=== PATIENT | male | born 1995 | race Caucasian/White ===

== ENCOUNTER 2021-03-17 11:30 | Emergency (ER) | payer OTHER, SELFPAY ==
[2021-03-17 11:31] VITALS: BP 158/108; PULSE 120; RESP 16; TEMP 36.7; O2SAT 99; BMI 23.4
--- NOTE | 2021-03-17 11:45 | NURSING ---
NO OLD EKGS
[2021-03-17 13:34] VITALS: BP 140/88; PULSE 119; RESP 15
--- NOTE | 2021-03-17 13:46 | EKG12_ITS ---
Test Reason : Blood Pressure : / mmHG Vent. Rate : 125 BPM Atrial Rate : 125 BPM P-R Int : 122 ms QRS Dur : 102 ms QT Int : 296 ms P-R-T Axes : 071 084 054 degrees QTc Int : 427 ms Sinus tachycardia Otherwise normal ECG Confirmed by PAVEL HERNANDEZ, DELROY ([id number]), editor at large BIRGIT HARRINGTON ([id number]) on 03/18/2021 12:56:18 PM Referred By: TRUDY Confirmed By:DELROY ZHAO MD
--- NOTE | 2021-03-17 13:46 | CT_ITS ---
STUDY: CTA CHEST REASON FOR EXAM: Male, 25 years old. Left-sided chest pain worsening with deep inspiration RADIATION DOSAGE (If Supplied By Facility): CTDIvol = ( 10.03 ) mGy, DLP = ( 380.10 ) mGycm TECHNIQUE: The examination was performed with the intravenous administration of IV 100mL Isovue-370. Post-processing of the angiographic images was performed, with multiplanar reformation and 3D reconstruction. Individualized dose optimization techniques were used for this CT. COMPARISON: None. FINDINGS: There is no acute or chronic pulmonary embolism. Aorta is of normal caliber. Lungs are clear. There is no pneumothorax, pulmonary edema or pleural effusions. Mediastinal contents are normal. Osseous structures are intact. Abdominal structures are unremarkable. CT/CTA Chest W/WO Contrast IMPRESSION: 1. No pulmonary embolism 2. Normal chest. Electronically Signed: Kilo Dobbs MD at 15:25 EDT Tel , Service support ,
[2021-03-17] MEDS: Aspirin 81 MG TAB.CHEW 324 MG PO (14:02)
[2021-03-17] MEDS: 0.9% Normal Saline 1,000 ML 1000 ML IV (14:13)
[2021-03-17 14:22] LABS: Absolute Lymphocyte Count 1.16 X10^3/uL (0.83-4.51); Absolute Neutrophil Count 7.4 X10^3/uL (2.0-7.7); Basophil# 0.03 X10^3/uL; Basophil% 0.3 % (0-1); Eosinophil# 0.01 X10^3/uL; Eosinophils% 0.1 % (0-5); Hematocrit 41.8 % (40-54); Hemoglobin 14.7 g/dL (13.0-16.5); Lymphocyte # 1.16 X10^3/ul (0.83-4.51); Lymphocyte % 12.3 % (19-41); Mean Corp Hgb Conc 35.2 g/dL (32-36); Mean Corpuscular Hgb 31.9 pg (27.0-32.0); Mean Corpuscular Volume 90.7 fL (80-94); Monocyte% 8.5 % (0-10); NRBC Flagged by Analyzer 0 % (0-5); Neutrophil # 7.38 X10^3/uL (2.7-7.7); Neutrophil % 78.4 % (47-70); Platelet Count 142 K/mm3 (150-450); RBC Distribution Width CV 12.2 % (11.6-14.6); RBC Distribution Width SD 40.7 fl (35.1-43.9); Red Blood Count 4.61 M/mm3 (4.6-6.2); White Blood Count 9.4 K/mm3 (4.4-11.0)
[2021-03-17 14:40] LABS: Anion Gap 8 (5-15); BUN 13 mg/dL (7-18); Calcium,Total 9.3 mg/dL (8.5-10.1); Chloride 104 mmol/L (98-107); Creatinine, Serum 0.87 mg/dL (0.70-1.30); EST Glomerular Filtration Rate 114 mL/min (>60); Est Glom Filt Rate - Afr Amer 137 mL/min (>60); Estimated Creatinine Clearance 142.46 ml/min; Glucose 111 mg/dL (74-106); Potassium 3.7 mmol/L (3.5-5.1); Sodium Level 139 mmol/L (136-145); Troponin-I HS 75 pg/mL (3.0-78.0)
[2021-03-17 14:44] VITALS: BP 145/75; PULSE 106; RESP 18; O2SAT 99
--- NOTE | 2021-03-17 15:21 | EDS_ITS ---
HPI History of Present Illness Chief Complaint: Chest Pain Informant: patient Onset/Context/Timing Onset: Today Activity at onset: sudden Timing: Continuous Quality: Positive for - (Squeezing) Location: Substernal Worsened By: Breathing Relieved By: Nothing Associated Symptoms: Positive for Diaphoresis, Dyspnea, Lightheadedness and Palpitations; Negative for Nausea, Vomiting, Cough, Fever and Acid Reflux Narrative Narrative: Patient presents with chest pain that began today. Patient states it began rather suddenly. Patient states it has been constant. Patient states it feels like a squeezing sensation over the substernal area. Patient states it is worse when he takes deep breath. Patient states nothing seems to help with it. Patient states he did get clammy when it began. Patient also admits to some shortness of breath and lightheadedness. Patient also admits to some palpitations. Patient states his mother has a history of coronary artery disease in her 30s. Patient denies any other cardiac or PE risk factors. CVD Risk Factors: Positive for Family History 1' </=55; Negative for Hypertension, Diabetes, Hypercholesterolemia and Smoking PE Risk Factors: Negative for Recent Travel/Surgery, Recent Immobilization, Prior DVT or PE, Cancer and OCP + Smoking + >/=35 PFSH PFSH Medical History Non-smoker no medical history Home Medications No Known/Unobtainable [No Known Home Medications] 11/16/15 [History Last Taken Unknown] Allergy/AdvReac Type Severity Reaction Status Date / Time No Known Allergies Allergy Verified 03/17/21 11:31 Surgical History no surgical history no surgical history Social History Smoking Status: Never smoker ROS ROS ED Constitutional Constitutional ED: Denies chills or fever(s) Eyes Eyes: Denies blurry vision or change in vision ENT ENT ED: Denies rhinorrhea or sore throat Cardiovascular Cardiovascular: Reports chest pain and palpitations Respiratory/Chest Respiratory/Chest: Reports dyspnea; Denies cough Gastrointestinal Gastrointestinal: Denies abdominal pain, nausea or vomiting Genitourinary Genitourinary ED: Denies dysuria or hematuria Musculoskeletal Musculoskeletal: Denies back pain or neck pain Integumentary Denies abscess or rash Neurologic Neurologic: Denies headache(s) or weakness Allergic/Immunologic Allergic/Immunologic ED: Denies mouth swelling or urticaria EXAM Physical Exam Const Vital Signs: 03/17/21 11:31 03/17/21 13:34 03/17/21 14:21 Temperature 98.0 F Temperature Source Temporal Pulse Rate 120 H 119 H Respiratory Rate 16 15 Respiratory Effort Normal Blood Pressure 158/108 H 140/88 H Blood Pressure Mean 124 105 Pulse Ox 99 Oxygen Delivery Method Room Air Room Air Room Air 03/17/21 14:44 Temperature Temperature Source Pulse Rate 106 H Respiratory Rate 18 Respiratory Effort Blood Pressure 145/75 H Blood Pressure Mean 98 Pulse Ox 99 Oxygen Delivery Method Room Air Positive well nourished, well developed and obese General Appearance ED: well developed Nutritional Appearance: obese HEENT normocephalic and atraumatic Eyes PERRL and EOMs intact bilaterally Neck supple and no JVD Chest Wall palpation of chest normal Resp normal respiratory effort and clear to auscultation bilaterally Effort and Inspection: Negative for respiratory distress Cardio regular rate, regular rhythm and no murmurs GI normal to inspection, nondistended, normoactive bowel sounds, soft to palpation, non-tender and non-distended Extremity normal to inspection General Extremety ED: Negative for edema or tenderness General Extremity: Negative for edema Neuro oriented x3, CN's II-XII intact bilaterally and no sensory deficits noted Sensorium / Orientation: awake and alert Motor Exam: strength 5/5 throughout Psych mental status grossly normal Heart Score History: Moderately Suspicious ECG: Normal Age: </= 45 years Risk Factors: 1 or 2 Risk Factors Troponin: </= Normal Limit Score: 2 MDM MDM MDM Narrative Medical decision making narrative: Patient was given IV fluids and aspirin here. EKG was obtained. On my interpretation, it showed a sinus tachycardia with a rate of 125. NV interval, QRS interval, and QTc intervals were all normal. [place] was normal. There are no acute ST or T wave changes. CBC and basic metabolic profile were within normal limits. High-sensitivity troponin was normal. CTA of the chest was obtained. There is no air embolism. There is no acute process noted. This was interpreted by the radiologist and reviewed by myself. Repeat high-sensitivity troponin was obtained and was improved. Patient has a HEART score of 2. Patient was advised that this is low risk for acute cardiac event. Patient was instructed to follow-up with his primary care physician in 5 to 7 days. Patient understood and was agreeable with the plan. All questions were answered. Lab Data Attestation: I reviewed the patient's lab results. Labs: Laboratory Results - last 24 hr 03/17/21 03/17/21 03/17/21 14:16 14:16 16:06 WBC 9.4 RBC 4.61 Hgb 14.7 Hct 41.8 MCV 90.7 MCH 31.9 MCHC 35.2 RDW Std Deviation 40.7 RDW Coeff of Kush 12.2 Plt Count 142 L MPV 8.0 Immature Gran % (Auto) 0.400 Neut % (Auto) 78.4 H Lymph % (Auto) 12.3 L [place] % (Auto) 8.5 Eos % (Auto) 0.1 Baso % (Auto) 0.3 Absolute Neuts (auto) 7.4 Absolute Lymphs (auto) 1.16 Nucleated RBC % 0 Sodium 139 Potassium 3.7 Chloride 104 Carbon Dioxide 27.0 Anion Gap 8 BUN 13 Creatinine 0.87 Estim Creat Clear Calc 142.46 Est GFR (MDRD) Af Amer 137 Est GFR (MDRD) Non-Af 114 BUN/Creatinine Ratio 15.0 Glucose 111 H Calcium 9.3 Troponin I High Sens 75 69 Radiography Diagnostic Testing: Clinical Impression(s) from Imaging Studies Chest CTA 03/17/21 13:46 IMPRESSION: 1. No pulmonary embolism 2. Normal chest. Electronically Signed: Kilo Dobbs MD at 15:25 EDT Tel , Service support , EKG Initial EKG: Attestation: I personally reviewed and interpreted this EKG as follows: Interpretation: No Acute Injury Pattern and Sinus Tachycardia (125) Prior EKG tracings: not available for review Discharge Plan Triage Chief Complaint: Chest Pain ED Provider: John Irwin Dx/Rx/DC Orders Clinical Impression: Chest pain of uncertain etiology Instructions: ED Chest Pain, Uncertain Cause Prescriptions: No Action No Known Home Medications RF: 0 Primary Care Provider: Eagle Goel Referrals: Eagle Goel MD [Primary Care Provider] - 5-7 Days Disposition Disposition: Home, Self Care
[2021-03-17 16:28] LABS: Troponin-I HS 69 pg/mL (3.0-78.0)
[2021-03-17 16:49] VITALS: BP 122/74; PULSE 71; RESP 15; O2SAT 98
== END 2021-03-17 16:49 | disposition home or self-care (01) ==
PROVIDERS: Emergency Provider Emergency Medicine; PCP Pediatrics
DX: R07.9 Chest pain, unspecified (principal); R06.02 Shortness of breath; R42 Dizziness and giddiness; Z82.49 Family history of ischemic heart disease and other diseases of the circulatory system
CPT/HCPCS: 71275; 80048; 84484; 85025; 93005; 96360; 99284; J7030; Q9967

== ENCOUNTER 2022-11-16 20:18 | Emergency (ER) | payer BC, SELFPAY ==
[2022-11-16 20:19] VITALS: BP 146/98; PULSE 126; RESP 15; TEMP 37; O2SAT 96; BMI 27.8
[2022-11-16 21:17] LABS: Absolute Lymphocyte Count 1.88 X10^3/uL (0.83-4.51); Absolute Neutrophil Count 2.8 X10^3/uL (2.0-7.7); Basophil# 0.02 X10^3/uL; Basophil% 0.4 % (0-1); Eosinophil# 0.02 X10^3/uL; Eosinophils% 0.4 % (0-5); Hematocrit 44.2 % (40-54); Hemoglobin 15.6 g/dL (13.0-16.5); Lymphocyte # 1.88 X10^3/ul (0.83-4.51); Lymphocyte % 33.9 % (19-41); Mean Corp Hgb Conc 35.3 g/dL (32-36); Mean Corpuscular Hgb 31.8 pg (27.0-32.0); Mean Corpuscular Volume 90.2 fL (80-94); Mean Platelet Vol. 7.9 fl (6.2-12.0); Monocyte# 0.82 X10^3/uL; Monocyte% 14.8 % (0-10); NRBC Flagged by Analyzer 0 % (0-5); Neutrophil % 50.3 % (47-70); Platelet Count 151 K/mm3 (150-450); RBC Distribution Width CV 12.2 % (11.6-14.6); RBC Distribution Width SD 40.3 fl (35.1-43.9); White Blood Count 5.6 K/mm3 (4.4-11.0)
[2022-11-16 21:33] LABS: Anion Gap 10 (5-15); BUN 7 mg/dL (7-18); BUN/Creat Ratio 8.2 RATIO (10-20); Calcium,Total 8.7 mg/dL (8.5-10.1); Chloride 105 mmol/L (98-107); Creatinine, Serum 0.86 mg/dL (0.70-1.30); EST Glomerular Filtration Rate 114 mL/min (>60); Est Glom Filt Rate - Afr Amer 138 mL/min (>60); Estimated Creatinine Clearance 141.61 ml/min; Glucose 156 mg/dL (74-106); Potassium 3.4 mmol/L (3.5-5.1); Sodium Level 143 mmol/L (136-145)
[2022-11-16 21:33] LABS: Amphetamine Urine VISTA NEGATIVE (<1000 ng/mL); Barbiturate Urine VISTA NEGATIVE (< 200 ng/mL); Benzodiazepine Urine VISTA NEGATIVE (< 200 ng/mL); Cocaine Urine VISTA NEGATIVE (< 300 ng/mL); Ecstacy Urine VISTA NEGATIVE (< 500 ng/mL); Methadone Urine VISTA NEGATIVE (< 300 ng/mL); PCP Urine VISTA NEGATIVE (< 25 ng/mL); THC Urine VISTA NEGATIVE (< 50 ng/mL); Vista UDS pH Range 6
--- NOTE | 2022-11-16 22:44 | EX.ED.VIS.PS ---
HPI HPI - Psych History of Present Illness Chief Complaint: Suicidal Onset/Context/Timing Onset: Today Timing: Intermittent Worsened by: Situational factors Relieved by: Nothing Associated Symptoms Associated Symptoms - Psych: Positive for Suicidal Thoughts; Negative for Change in Eating, Change in sleeping, Confusion, Paranoia, Visual Hallucinations or Auditory Hallucinations Specific plan (suicidal thought): Jumping off of a bridge Narrative Narrative: Patient presents with anxiety and suicidal ideations that became worse today. Patient states he drinks alcohol daily. Patient states that he was in [place] yesterday. Patient states he was having thoughts of jumping off of a bridge. Patient states he was taken to an urgent care while he was there. Patient states he was given some Xanax and he no longer had suicidal ideations. Patient was discharged and came back to [place]. Patient states that tonight he started having more anxiety and suicidal ideations. PFSH PFS Medical History Anxiety Non-smoker Home Medications alprazolam 1 mg tablet (Xanax) 1 mg PO DAILY PRN panic attacks 11/16/22 [History Last Taken Unknown] duloxetine 60 mg capsule,delayed release sprinkle 60 mg PO DAILY 11/16/22 [History Last Taken Unknown] propranolol 10 mg tablet 10 - 30 mg PO DAILY PRN Anxiety 11/16/22 [History Last Taken Unknown] Allergy/AdvReac Type Severity Reaction Status Date / Time No Known Allergies Allergy Verified 11/16/22 20:24 Social History (Updated 11/16/22 @ 22:[address] John Irwin, DO) Smoking Status: Never smoker alcohol intake: current alcohol intake frequency: 3 or more drinks per day ROS ROS ED Constitutional Constitutional ED: Denies chills or fever(s) Eyes Eyes: Denies blurry vision or change in vision ENT ENT ED: Denies rhinorrhea or sore throat Cardiovascular Cardiovascular: Denies chest pain or palpitations Respiratory/Chest Respiratory/Chest: Denies cough or dyspnea Gastrointestinal Gastrointestinal: Denies nausea or vomiting Genitourinary Genitourinary ED: Denies dysuria or hematuria Musculoskeletal Musculoskeletal: Denies back pain or neck pain Integumentary Denies abscess or rash Neurologic Neurologic: Denies headache(s) or weakness Psychiatric Psychiatric: Reports anxiety, suicidal ideation and suicidal thoughts Allergic/Immunologic Allergic/Immunologic ED: Denies mouth swelling or urticaria EXAM Physical Exam Const Vital Signs: 11/16/22 20:19 Temperature 98.6 F Temperature Source Temporal Pulse Rate 126 H Respiratory Rate 15 Blood Pressure 146/98 H Blood Pressure Mean 114 Pulse Ox 96 Oxygen Delivery Method Room Air Positive well nourished and well developed General Appearance ED: well developed HEENT normocephalic and atraumatic Neck supple and no JVD Resp normal respiratory effort and clear to auscultation bilaterally Cardio no murmurs Rate: regular rate Rhythm: regular rhythm GI non-tender and non-distended Auscultation: normoactive bowel sounds Palpation: soft Extremity normal to inspection General Extremety ED: Negative for edema or tenderness General Extremity: Negative for edema Neuro oriented x3, CN's II-XII intact bilaterally and no sensory deficits noted Sensorium / Orientation: alert Motor Exam: strength 5/5 throughout Psych mental status grossly normal Activity / Motor Behavior: appropriate eye contact Speech: minimal and soft Mood & Affect: depressed and flat affect Thought Content: suicidality Insight: insight good Judgement: judgement good Skin Rashes: no rashes MDM MDM MDM Narrative Medical decision making narrative: Suicide precautions were maintained. Medical screening labs will be obtained. CBC will be obtained to assess for leukocytosis and anemia. Basic metabolic profile will be obtained to assess for electrolyte abnormality and renal function. Serum alcohol level will be obtained to assess for alcohol intoxication. Urine tox screen will be obtained to assess for substance abuse. Lab Data Lab results narrative: CBC was reviewed and was within normal limits. Basic metabolic profile was reviewed. Glucose was slightly elevated at 156 but was otherwise within normal limits. Urine tox screen was reviewed and was normal. Serum alcohol level was reviewed and was elevated at 227. Labs: Laboratory Results - last 24 hr 11/16/22 11/16/22 11/16/22 21:04 21:04 21:04 WBC 5.6 RBC 4.90 Hgb 15.6 Hct 44.2 MCV 90.2 MCH 31.8 MCHC 35.3 RDW Std Deviation 40.3 RDW Coeff of Kush 12.2 Plt Count 151 MPV 7.9 Immature Gran % (Auto) 0.200 Neut % (Auto) 50.3 Lymph % (Auto) 33.9 [place] % (Auto) 14.8 H Eos % (Auto) 0.4 Baso % (Auto) 0.4 Absolute Neuts (auto) 2.8 Absolute Lymphs (auto) 1.88 Nucleated RBC % 0 Sodium 143 Potassium 3.4 L Chloride 105 Carbon Dioxide 28.0 Anion Gap 10 BUN 7 Creatinine 0.86 Estim Creat Clear Calc 141.61 Est GFR (MDRD) Af Amer 138 Est GFR (MDRD) Non-Af 114 BUN/Creatinine Ratio 8.2 L Glucose 156 H Calcium 8.7 Urine Opiates Screen Urine Methadone Screen Ur Barbiturates Screen Ur Phencyclidine Scrn Ur Amphetamines Screen MDMA (Ecstasy) Screen U Benzodiazepines Scrn Urine Cocaine Screen U Cannabinoids Screen Ur Drug Screen Comment Ethyl Alcohol 227.0 11/16/22 21:12 WBC RBC Hgb Hct MCV MCH MCHC RDW Std Deviation RDW Coeff of Kush Plt Count MPV Immature Gran % (Auto) Neut % (Auto) Lymph % (Auto) [place] % (Auto) Eos % (Auto) Baso % (Auto) Absolute Neuts (auto) Absolute Lymphs (auto) Nucleated RBC % Sodium Potassium Chloride Carbon Dioxide Anion Gap BUN Creatinine Estim Creat Clear Calc Est GFR (MDRD) Af Amer Est GFR (MDRD) Non-Af BUN/Creatinine Ratio Glucose Calcium Urine Opiates Screen NEGATIVE Urine Methadone Screen NEGATIVE Ur Barbiturates Screen NEGATIVE Ur Phencyclidine Scrn NEGATIVE Ur Amphetamines Screen NEGATIVE MDMA (Ecstasy) Screen NEGATIVE U Benzodiazepines Scrn NEGATIVE Urine Cocaine Screen NEGATIVE U Cannabinoids Screen NEGATIVE Ur Drug Screen Comment Ethyl Alcohol Treatment and Re-Evaluation Narrative: Patient was advised of his findings. Patient was given his evening doses of duloxetine and Xanax. Patient will need to be clinically sober when he can be evaluated by crisis counselor. Patient was advised that this will be for at least 5 more hours. Care of the patient was turned over to the oncoming physician pending crisis evaluation. Discharge Plan Triage Chief Complaint: Suicidal ED Provider: John Irwin Dx/Rx/DC Orders Clinical Impression: Depression, Suicidal ideation, Alcohol intoxication Prescriptions: No Action duloxetine 60 mg Capsule, Delayed Rel Sprinkle 60 mg PO DAILY alprazolam [Xanax] 1 mg Tablet 1 mg PO DAILY PRN (Reason: panic attacks) Rx Instructions: unsure of dose propranolol 10 mg tablet 10 - 30 mg PO DAILY PRN (Reason: Anxiety)
[2022-11-16] MEDS: ALPRAZolam 0.5 MG Tablet 1 MG PO (22:59)
[2022-11-16] MEDS: DULoxetine Hcl 60 MG Capsule PO (22:59)
[2022-11-16 23:00] VITALS: RESP 16
[2022-11-17] VITALS (7 sets, daily range): BP systolic 116–128; BP diastolic 70–72; PULSE 69–89; RESP 14–17; O2SAT 97–98
--- NOTE | 2022-11-17 05:17 | NURSING ---
CALLED CRISIS AT [id number]
== END 2022-11-17 07:01 | disposition home or self-care (01) ==
PROVIDERS: Emergency Provider Emergency Medicine; Visit Provider Emergency Medicine
DX: F32.A Depression, unspecified (principal); F10.129 Alcohol abuse with intoxication, unspecified; R45.851 Suicidal ideations; F41.9 Anxiety disorder, unspecified; Z79.899 Other long term (current) drug therapy; Y90.7 Blood alcohol level of 200-239 mg/100 ml
CPT/HCPCS: 80048; 80307; 82077; 85025; 99284